=== PATIENT | male | born 1940 | race Caucasian/White ===

== ENCOUNTER 2017-08-22 13:15 | Emergency (ER) | payer OTHER ==
[~2017-08-22] VITALS: Ht 180.3 cm; Wt 79.8 kg
[~2017-08-22 13:15] MED LIST: ASA81 MG PO; PERCOCET 5/3251 TAB PO; PNEU16DI2; TAMS0.4C PO; ZOCOR40 MG PO; ZOCOR5 MG PO
== END 2017-08-22 17:35 | disposition home or self-care (01) ==
LOC: ER 13:15
DX: B34.9 Viral infection, unspecified (principal); J11.1 Influenza due to unidentified influenza virus with other respiratory manifestations

== ENCOUNTER 2018-09-20 11:34 | Emergency (ER) | payer OTHER ==
[~2018-09-20] VITALS: Ht 180.3 cm; Wt 81.6 kg
== END 2018-09-20 14:38 | disposition home or self-care (01) ==
LOC: ER 11:34
DX: M10.071 Idiopathic gout, right ankle and foot (principal)

== ENCOUNTER 2018-11-17 05:10 | Day surgery (SDC) | payer OTHER | END 2018-11-17 11:06 | disposition home or self-care (01) | LOC: AMB-ENDOS 05:10 | DX: D12.0 Benign neoplasm of cecum (principal) ==

== ENCOUNTER 2023-12-04 14:02 | Emergency (ER) | payer OTHER ==
[~2023-12-04] VITALS: Ht 180.3 cm; Wt 83.9 kg
[2023-12-04] MEDS ORDERED: DEXAMETHASONE SODIUM PHOSPHATE 4 MG/ML VIAL IM STA (17:55)
[2023-12-04] MEDS ORDERED: KETOROLAC TROMETHAMINE 30 MG VIAL IM STA (17:55)
== END 2023-12-04 18:15 | disposition home or self-care (01) ==
LOC: ER 14:04
DX: M10.9 Gout, unspecified (principal)
CPT/HCPCS: 96372; 99283; J1100; J1885